=== PATIENT | male | born 1985 | race Caucasian/White ===

== ENCOUNTER 2019-09-20 10:56 | Emergency (ER) | payer SELFPAY ==
[2019-09-20] MEDS ORDERED: Ketorolac Tromethamine 60 MG/2 ML VIAL ONE (11:58)
== END 2019-09-20 12:30 | disposition home or self-care (01) ==
LOC: ERS 10:56
DX: K05.10 Chronic gingivitis, plaque induced (principal); F41.9 Anxiety disorder, unspecified; F32.9 Major depressive disorder, single episode, unspecified; F17.210 Nicotine dependence, cigarettes, uncomplicated
CPT/HCPCS: 96372; 99283; J1885

== ENCOUNTER 2020-02-16 07:11 | Emergency (ER) | payer SELFPAY ==
[2020-02-16 07:57] LABS: #Basophils 0.1 thou/uL (0.0-0.2); #Eosinphils 0.1 thou/uL (0.0-0.7); #Lymphocytes 3.1 thou/uL (1.20-3.40); #Monocytes 0.8 thou/uL (0.11-0.59); #Neutrophils 5.3 thou/uL (1.40-6.50); %Basophils 1.2 % (0.0-1.0); %Eosinophils 1.3 % (0.0-10.0); %Lymphocytes 32.8 % (21.0-51.0); %Monocytes 8.3 % (0.0-10.0); %Neutrophils 56.4 % (42.0-75.0); Hemoglobin 16.1 g/dL (14.0-18.0); Mean Corpuscular HGB CONC 34.7 g/dL (32.0-36.0); Mean Corpuscular Hemoglobin 33.7 pg (27.0-31.0); Mean Corpuscular Volume 97.1 fL (78.0-98.0); Mean Platelet Volume 7.6 fL (7.4-10.4); Platelet Count 181 thou/uL (130-400); RBC Distribution Width 11.7 % (11.5-14.5); Red Blood Cell (RBC) Count 4.77 mill/uL (4.70-6.10); White Blood Cell (WBC) Count 9.4 thou/uL (4.8-10.8)
[2020-02-16 08:11] LABS: ALT (SGPT) 8 U/L (8-55); AST (SGOT) 9 U/L (5-34); Albumin 4.2 g/dL (3.5-5.0); Alkaline Phosphatase 67 U/L (40-110); Anion Gap 12 mmol/L (10-20); BUN (Urea Nitrogen) 12 mg/dL (8.9-20.6); Bilirubin, Total 0.7 mg/dL (0.2-1.2); Calc. Creatinine Clearance 0 mL/min (70-130); Calcium 8.9 mg/dL (7.8-10.44); Carbon Dioxide 28 mmol/L (22-29); Chloride 102 mmol/L (98-107); Estimated GFR-MDRD Greater than 90; Globulin 2.4 g/dL (2.4-3.5); Glucose 91 mg/dL (70-105); Lipase 34 U/L (8-78); Potassium 3.6 mmol/L (3.5-5.1); Protein, Total 6.6 g/dL (6.0-8.3); Sodium 138 mmol/L (136-145)
[2020-02-16] MEDS ORDERED: Lidocaine Viscous Sol 2% 15 ml UD Cup ONE (09:17)
[2020-02-16] MEDS ORDERED: Mag-Al 1200 mg/1200 mg/30 ML UDCUP ONE (09:17)
--- NOTE | 2020-02-16 09:21 | RAD ---
CHEST ONE VIEW: HISTORY: Chest pain and shortness of breath. COMPARISON: 11/19/2014 FINDINGS: The cardiac silhouette and pulmonary vasculature are within normal limits. The lungs are hyperexpande d and clear. Radiopaque tubing overlies the right chest. No interval change from prior study. IMPRESSION: No acute cardiopulmonary process. POS: OFF
--- NOTE | 2020-02-16 09:25 | ULT ---
GALLBLADDER ULTRASOUND: INDICATIONS: Right upper quadrant pain. FINDINGS: The gallbladder is contracted. Wall thickening is seen, consistent with the contracted state of the g allbladder. No definite gallstone identified. The technologist states that the patient is fasting. The common bile duct is of normal caliber. The visualized liver, pancreas and right kidney appear unremarkable. IMPRESSION: Contracted gallbladder with thickened wall. No definite gallstones. The technologist describes a nega tive Jolley sign. POS: AGW
== END 2020-02-16 09:32 | disposition home or self-care (01) ==
LOC: ERS 07:11
DX: R07.9 Chest pain, unspecified (principal); F32.9 Major depressive disorder, single episode, unspecified; F41.9 Anxiety disorder, unspecified; F17.210 Nicotine dependence, cigarettes, uncomplicated
CPT/HCPCS: 36415; 71045; 76705; 80053; 83690; 84484; 85025; 93005

== ENCOUNTER 2020-07-28 12:09 | Emergency (ER) | payer SELFPAY ==
[2020-07-28] MEDS ORDERED: Ondansetron PF 4 MG/2 ML Vial ONE (12:30)
[2020-07-28 12:41] LABS: #Lymphocytes 1.7 thou/uL (1.20-3.40); #Monocytes 0.7 thou/uL (0.11-0.59); #Neutrophils 8.5 thou/uL (1.40-6.50); %Basophils 0.4 % (0.0-1.0); %Eosinophils 0.1 % (0.0-10.0); %Lymphocytes 15.3 % (21.0-51.0); %Monocytes 6.2 % (0.0-10.0); Hemoglobin 18.7 g/dL (14.0-18.0); Mean Corpuscular HGB CONC 34.5 g/dL (32.0-36.0); Mean Corpuscular Hemoglobin 33.5 pg (27.0-31.0); Mean Corpuscular Volume 96.9 fL (78.0-98.0); Mean Platelet Volume 7.8 fL (7.4-10.4); Platelet Count 241 thou/uL (130-400); RBC Distribution Width 11.6 % (11.5-14.5); Red Blood Cell (RBC) Count 5.59 mill/uL (4.70-6.10); White Blood Cell (WBC) Count 10.9 thou/uL (4.8-10.8)
[2020-07-28 13:03] LABS: ALT (SGPT) 22 U/L (8-55); AST (SGOT) 16 U/L (5-34); Albumin 4.8 g/dL (3.5-5.0); Alkaline Phosphatase 72 U/L (40-110); Anion Gap 17 mmol/L (10-20); BUN (Urea Nitrogen) 12 mg/dL (8.9-20.6); Bilirubin, Total 1.2 mg/dL (0.2-1.2); Calc. Creatinine Clearance 0 mL/min (70-130); Calcium 10.1 mg/dL (7.8-10.44); Carbon Dioxide 27 mmol/L (22-29); Chloride 99 mmol/L (98-107); Estimated GFR-MDRD 82; Globulin 3.3 g/dL (2.4-3.5); Glucose 115 mg/dL (70-105); Lipase 12 U/L (8-78); Potassium 4.3 mmol/L (3.5-5.1); Protein, Total 8.1 g/dL (6.0-8.3); Sodium 139 mmol/L (136-145)
[2020-07-28] MEDS ORDERED: Acetaminophen 500 MG TAB ONE (14:15)
== END 2020-07-28 14:30 | disposition home or self-care (01) ==
LOC: ERS 12:09
DX: K29.20 Alcoholic gastritis without bleeding (principal); E86.0 Dehydration; R11.2 Nausea with vomiting, unspecified; F41.9 Anxiety disorder, unspecified; F32.9 Major depressive disorder, single episode, unspecified; F17.210 Nicotine dependence, cigarettes, uncomplicated; K21.9 Gastro-esophageal reflux disease without esophagitis
CPT/HCPCS: 80053; 83690; 85025; 96361; 96374; J2405

== ENCOUNTER 2021-09-25 07:35 | Emergency (ER) | payer SELFPAY ==
[2021-09-25] MEDS ORDERED: Magnesium 2 GM/50 ML BAG (IN WATER) ONE (08:32)
[2021-09-25 08:44] LABS: #Basophils 0.1 thou/uL (0.0-0.2); #Eosinphils 0.2 thou/uL (0.0-0.7); #Lymphocytes 3.2 thou/uL (1.20-3.40); #Monocytes 0.5 thou/uL (0.11-0.59); #Neutrophils 4.6 thou/uL (1.40-6.50); %Basophils 1.3 % (0.0-1.0); %Eosinophils 2.2 % (0.0-10.0); %Lymphocytes 37.2 % (21.0-51.0); %Monocytes 5.3 % (0.0-10.0); %Neutrophils 54.1 % (42.0-75.0); Hemoglobin 17.7 g/dL (14.0-18.0); Mean Corpuscular HGB CONC 34.4 g/dL (32.0-36.0); Mean Corpuscular Hemoglobin 33.7 pg (27.0-31.0); Mean Platelet Volume 7.2 fL (7.4-10.4); Platelet Count 236 thou/uL (130-400); RBC Distribution Width 12.3 % (11.5-14.5); Red Blood Cell (RBC) Count 5.24 mill/uL (4.70-6.10); White Blood Cell (WBC) Count 8.5 thou/uL (4.8-10.8)
[2021-09-25 08:46] LABS: ALT (SGPT) 10 U/L (8-55); AST (SGOT) 12 U/L (5-34); Albumin 4.4 g/dL (3.5-5.0); Alkaline Phosphatase 66 U/L (40-110); Anion Gap 13 mmol/L (10-20); BUN (Urea Nitrogen) 12 mg/dL (8.9-20.6); Bilirubin, Total 0.8 mg/dL (0.2-1.2); Calc. Creatinine Clearance 0 mL/min (70-130); Calcium 9.8 mg/dL (7.8-10.44); Carbon Dioxide 28 mmol/L (22-29); Chloride 103 mmol/L (98-107); Globulin 3.1 g/dL (2.4-3.5); Glucose 78 mg/dL (70-105); Magnesium 1.9 mg/dL (1.6-2.6); Potassium 3.9 mmol/L (3.5-5.1); Protein, Total 7.5 g/dL (6.0-8.3); Sodium 140 mmol/L (136-145)
== END 2021-09-25 09:40 | disposition home or self-care (01) ==
LOC: ERS 07:35
DX: R00.2 Palpitations (principal); K21.9 Gastro-esophageal reflux disease without esophagitis; F17.210 Nicotine dependence, cigarettes, uncomplicated
CPT/HCPCS: 71045; 80053; 83735; 84484; 85025; 93005; 96365; J3475